=== PATIENT | female | born 1990 | race Two or more races ===

== ENCOUNTER 2022-10-24 09:02 | Emergency (ER) | payer MEDICAID, OTHER ==
[2022-10-24 10:17] VITALS: BP 136/94
[2022-10-24] MEDS ORDERED: HYDROcodone-ACET 5/325MG TAB PO ONE (10:30)
[2022-10-24] MEDS ORDERED: DexAMETHasone 4 MG TAB PO ONE (10:30)
[2022-10-24] MEDS ORDERED: DexAMETHasone SOD PHOS 10MG/1ML VIAL INJ IM ONE (11:00)
[2022-10-24] MEDS ORDERED: IBU600T PO (11:08)
== END 2022-10-24 11:09 | disposition home or self-care (01) ==
LOC: ER 09:02
DX: S92.002A Unspecified fracture of left calcaneus, initial encounter for closed fracture (principal); X50.1XXA Overexertion from prolonged static or awkward postures, initial encounter; Y93.89 Activity, other specified; Y92.89 Other specified places as the place of occurrence of the external cause; Y99.8 Other external cause status
CPT/HCPCS: 29515; 73610; 73630; 96372; 99284; J1100